=== PATIENT | female | born 1965 | race Caucasian/White ===

== ENCOUNTER 2017-04-19 | Observation (INO) | payer OTHER ==
--- NOTE | 2017-04-19 00:13 | ED Physician Documentation ---
General Adult - HISTORIAN Historian: patient - HPI Stated Complaint: chest pain Chief Complaint: General Adult Onset: hours Timing: still present Severity: moderate Further Comments: yes (Pt is a 51 yo female who awoke with chest pain. Pt has hx GERD and anxiety and took Tagamet before going to bed because she has been having GERD the past few nights. Pain was across chest and back and radiated to L arm. Pt had some nausea, no diaphoresis or sob.) - ROS CONST: no problems EYES/ENT: none CVS/RESP: chest pain GI/: nausea MS/SKIN/LYMPH: none - PAST HX Past History: hypertension, other (GERD, Anxiety) Allergies/Adverse Reactions: Allergies Allergy/AdvReac Type Severity Reaction Status Date / Time No Known Allergies Allergy Verified 04/19/17 00:18 Home Medications: Ambulatory Orders Medication Instructions Recorded NK [NK] 07/21/16 - SOCIAL HX Smoking History: non-smoker - FAMILY HX Family History: No - VITAL SIGNS Vital Signs: Vital Signs Temp Pulse Resp BP Pulse Ox 149/94 07/21/16 07:46 - REVIEWED ASSESSMENTS Nursing Assessment Reviewed: Yes Vitals Reviewed: Yes Progress - Progress Progress: Ativan 1 mg IV Azithromycin 500 mg po KCl 20 mEq po Admit to ER physician, chest pain, possible infiltrate, hypokalemia - EKG/XRAY/CT EKG: NSR (HR=97; non-specific T-wave abnormality.) XRAY: chest ( Minimal right base infiltrate versus atelectasis. ) General Adult Physical Exam - PHYSICAL EXAM GENERAL APPEARANCE: moderate distress EENT: pharynx normal NECK: normal inspection, supple RESPIRATORY: no resp distress, chest non-tender, breath sounds normal CVS: reg rate & rhythm, heart sounds normal ABDOMEN: soft, no organomegaly, normal bowel sounds, other (obese) BACK: normal inspection, no CVA tenderness SKIN: warm/dry, normal color EXTREMITIES: non-tender, normal range of motion, no evidence of injury, other ( no calf pain or palpable cords) NEURO: oriented X3, motor nml, sensation nml Discharge Clincal Impression: possible R basilar infiltrate, Hypokalemia Chest pain Qualifiers: Chest pain type: unspecified Qualified Code(s): R07.9 - Chest pain, unspecified Referrals: Primary Doctor,No [Primary Care Provider] - Home Medications: Ambulatory Orders NK [NK] 07/21/16 Condition: Stable Disposition: 09 ADMITTED INPATIENT Decision to Admit: NO Decision Time: 01:49
[2017-04-19] MEDS ORDERED: LORazepam 2 MG/ML VIAL IVP ONE (00:15)
[2017-04-19] MEDS ORDERED: ASPIRIN 325 MG TABLET PO ONE (00:15)
[2017-04-19] MEDS ORDERED: ASPIRIN 81 MG CHEW TAB ONE (00:21)
[2017-04-19 00:39] LABS: BASOPHILS % 0.5 (0.0-1.5); EOSINOPHILS % 0.2 % (0.0-6.8); MEAN CORPUSCULAR HEMOGLOBIN 27.5 pg (28.0-34.0); MONOCYTES % 4.5 % (0.0-11.0); NEUTROPHILS # 5.1 # k/uL (1.4-7.7)
[2017-04-19 00:54] LABS: eGFR (African) > 60; eGFR (Non-African) > 60
[2017-04-19] MEDS ORDERED: POTASSIUM CHLORIDE 20 MEQ TABLET.ER PO ONE (01:08)
[2017-04-19] MEDS ORDERED: AZITHROMYCIN 250 MG TABLET PO ONE (01:19)
[2017-04-19] MEDS ORDERED: 0.9 % SODIUM CHLORIDE 50 ML IV ONE (01:20)
[2017-04-19] MEDS ORDERED: PANTOPRAZOLE SODIUM INJ. 40 MG VIAL ONE (01:20)
[2017-04-19 02:52] VITALS: BMI 48.4
--- NOTE | 2017-04-19 05:40 | Diagnostic Imaging Report ---
ISACC HALE [facility] [id number] [facility] [address] [place] [address]. [id number] Report Submission Date: Apr 19, 2017 12:34:37 AM CDT Patient Study Name: THAO ROMAN Date: Apr 19, 2017 12:16:04 AM CDT Modality Type: CR Gender: F Description: CHEST : 65 Institution: [facility] Physician: ISACC HALE Portable chest History: Chest pain Findings: Minimal infiltrate or atelectasis is present at the right lung base. The left lung base is obscured due to portable technique and obesity. Heart size and pulmonary vascularity are normal. No pleural effusions are observed. Impression: 1. Minimal right base infiltrate versus atelectasis. 2. Obesity. Electronically signed on Apr 19, 2017 12:34:37 AM CDT by: Roger VALENZUELA
[2017-04-19] MEDS ORDERED: POTASSIUM CHLORIDE 20 MEQ TABLET.ER PO SCH (09:00)
[2017-04-19] MEDS ORDERED: AZITHROMYCIN 250 MG TABLET PO SCH (09:00)
[2017-04-19] MEDS ORDERED: PANTOPRAZOLE SODIUM 40 MG in 0.9 % SODIUM CHLORIDE 50 ML IV SCH (09:00)
[2017-04-19] MEDS ORDERED: CloNIDine HCL 0.1 MG TABLET PO ONE (13:06)
[2017-04-19] MEDS ORDERED: KETOROLAC TROMETHAMINE 30 MG/1ML VIAL IVP ONE (13:06)
[2017-04-19] MEDS ORDERED: SALINE FLUSH 10 ML DISP.SYRIN IVF ONE (13:15)
[2017-04-19 13:37] LABS: eGFR (African) > 60; eGFR (Non-African) > 60
[2017-04-19 14:53] VITALS: BP 148/95
--- NOTE | 2017-04-19 15:20 | Discharge Summary ---
Discharge Summary - Discharge Sumary History of Present Illness: chest pain, aoken with left pectoral and upper trapezius pain last night. Now gone Additional Instructions: medications as prescribed Condition at Discharge: Stable Home Medications: Ambulatory Orders Medication Instructions Recorded NK [NK] 07/21/16 Consultations this Visit: None Procedures this Visit: None Allergies/Adverse Reactions: Allergies Allergy/AdvReac Type Severity Reaction Status Date / Time No Known Allergies Allergy Verified 04/19/17 00:18 Patient Problems: Current Active Problems Problem Status Onset Accelerated hypertension Acute Anxiety Acute Chest pain Acute Costochondritis Acute Hypokalemia Acute Hospital Course: Responded well to tx, ekg's show no ischemia and trops x 3 < 0.03. Home with scripts for Lisinopril/hctz 10/12.5 p.o. daily #30, Zithromax 500 mg p.o. daily #7, Meloxicam 15 mg p.o. daily #30, Tramadol 1 p.o. bid prn pain #30, Effexor XR 150 mg 1 p.o. daily #30. - Final Diagnosis (1) Costochondritis Right or Left: Left (4) Pneumonia Right or Left: Right
== END 2017-04-19 15:40 | disposition home or self-care (01) ==
LOC: ED → SOUTH 02:07
PROVIDERS: ADMIT Emergency Medicine; ATTEND Emergency Medicine
DX: M94.0 Chondrocostal junction syndrome [Tietze] (principal); J18.9 Pneumonia, unspecified organism
CPT/HCPCS: 71010; 80048; 80053; 82550; 82553; 83880; 84484; 85025; 85379; 93005; A9270; G0378; J1885; J2060; 96374; 96375; 99284; S1016

== ENCOUNTER 2018-09-03 11:33 | Outpatient (CLI) | payer BC | END 2018-09-03 11:35 | LOC: LABRHC 11:33 | PROVIDERS: ATTEND Family Medicine | DX: R30.0 Dysuria (principal); B96.89 Other specified bacterial agents as the cause of diseases classified elsewhere | CPT/HCPCS: 87086 ==